=== PATIENT | male | born 1975 | race Caucasian/White ===

== ENCOUNTER 2019-09-13 21:15 | Emergency (ER) | payer SELFPAY ==
[~2019-09-13] VITALS: Ht 167.6 cm; Wt 96.2 kg
[2019-09-13 21:19] VITALS: BP 163/104
--- NOTE | 2019-09-13 21:27 | NUR ---
PT AMBULATED TO BED #9
--- NOTE | 2019-09-13 21:29 | NUR ---
PT AMBULATED TO BED 07.
--- NOTE | 2019-09-13 21:44 | NUR ---
44 Y/O MALE C/O NOSEBLEED X30 MINS. PT CURRENTLY BLEEDING, TISSUE AND PRESSURE APPLIED. PT SEEN 09/12 AT [facility] FOR SAME SYMPTOMS. A/X X 3 AND FOLLOWS COMMANDS. BREATHING UNLABORED AND SYMMETRICAL. NO PAIN NOTED. PT HAS POST NASAL DRIP, SPITTING UP BLOOD. VSS. ERMD MADE AWARE OF STATUS. PLACED ON MONITOR. AT BEDSIDE. WILL CONTINUE TO MONITOR NKA HX- HTN RX:AMLODIPINE
--- NOTE | 2019-09-13 21:46 | NUR ---
DR. BERMUDEZ AT BEDSIDE EVALUATING PATIENT.
[2019-09-13] MEDS ORDERED: PHENYLEPHRINE 0.5% 15 ML BTL NS ONE (22:00)
[2019-09-13] MEDS ORDERED: TRANEXAMIC ACID 1,000 MG/10 ML VIAL MC ONE (22:00)
--- NOTE | 2019-09-13 22:21 | NUR ---
ERMD AT BEDSIDE FOR PROCEDURE.
--- NOTE | 2019-09-13 22:31 | NUR ---
PATIENT IN NO DISTRESS AT THIS TIME. IS AT BEDSIDE. WILL CONTINUE TO MONITOR.
--- NOTE | 2019-09-13 23:34 | NUR ---
DR. BERMUDEZ BEDSIDE EVALUATING PT
[2019-09-13 23:41] VITALS: BP 138/94
--- NOTE | 2019-09-13 23:42 | NUR ---
Patient discharged with v/s stable. Written and verbal after care instructions given and explained. Patient alert, oriented and verbalized understanding of instructions. Ambulatory with steady gait. All questions addressed prior to discharge. ID band removed. Patient advised to follow up with PMD. Rx of AFRIN NASAL SPRAY, FLONASE SPRAY given. Patient educated on indication of medication including possible reaction and side effects. Opportunity to ask questions provided and answered.
== END 2019-09-13 23:42 | disposition home or self-care (01) ==
LOC: MED 21:15
DX: R04.0 Epistaxis (principal); I10 Essential (primary) hypertension; Z91.048 Other nonmedicinal substance allergy status
CPT/HCPCS: 99283; J3490